=== PATIENT | female | born 1935 | race Caucasian/White ===

== ENCOUNTER 2016-07-11 10:23 | Inpatient (IN) | payer MEDICARE, BC ==
--- NOTE | ~2016-07-11 | DS ---
Discharge Summary [id number] [place]. [address] NAME: CAMILLE TYLER : 37 STATUS : DIS IN PAT#: [id number] AGE: 81 ADM/REG DATE : 07/11/16 MR#: [id number] REPORT SERV DATE: 07/19/16 DICTATED BY: RASHMI CARVAJAL DATE: 07/18/16 REPORT STATUS : Draft TRANSCRIBED BY: MODL DATE: 07/18/16 ADMISSION DATE: 07/11/2016 DISCHARGE DATE: 07/18/2016 REASON FOR ADMISSION: Acute T12 compression fracture status post fall. HISTORY OF PRESENT ILLNESS: Please refer to Dr. Donna Smith's history and physical dated 07/11/2016 for complete details regarding the patient's admission. In brief, the patient was admitted to the Hospitalist Service for evaluation of her acute T12 compression fracture. HOSPITAL COURSE: From admission to 07/17/2016, please refer to Dr. Erin Mccabe's interim summary. In brief, Dr. Mccabe had taken care of the patient for the week. The patient had a kyphoplasty performed for her acute T12 compression fracture with good results. Physical therapy had recommended rehab. The patient was accepted to rehab in choice to [facility], [place], for rehab. In the meantime, urinalysis revealed an E. coli urinary tract infection. The patient was initially treated with IV Rocephin and now been switched over to cefadroxil for therapy to be completed on 07/19/2016. I assumed care of this patient on 07/18/2016, which is the day of discharge. She has been accepted to [facility], [place]. She is stable and we will discharge her to that facility today. DISCHARGE DIAGNOSES: 1. Acute T12 compression fracture, status post kyphoplasty. 2. Generalized debility secondary to a fall and back pain. 3. Escherichia coli urinary tract infection, now resolving. 4. Hypothyroidism. 5. Hypertension. 6. Chronic kidney disease stage 3. 7. Type 2 diabetes. 8. 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 PROCEDURES: Include kyphoplasty. DISCHARGE MEDICATIONS: Include: 1. Tramadol 50 mg every eight hours p.r.n. pain #20 given. 2. Amlodipine 5 mg at bedtime. 3. Wellbutrin 150 mg daily. 4. Caltrate 600+ daily. 5. Cefadroxil 500 mg twice a day to be completed on 07/19/2016. 6. Aricept 23 mg at bedtime. 7. Cymbalta 30 mg twice a day. 8. Iron sulfate 325 mg daily. 9. Insulin glargine 28 units at bedtime. 10.Insulin aspart sliding scale. 11.Levothyroxine 50 mcg daily. 12.Lisinopril 5 mg daily. Discharge Summary [address] [place]. [address] NAME: CAMILLE TYLER : 37 STATUS : DIS IN PAT#: [id number] AGE: 81 ADM/REG DATE : 07/11/16 MR#: [id number] REPORT SERV DATE: 07/19/16 DICTATED BY: RASHMI CARVAJAL DATE: 07/18/16 REPORT STATUS : Draft TRANSCRIBED BY: CLARA DATE: 07/18/16 13.Prilosec 40 mg at bedtime. 14.Seroquel 50 mg at bedtime. 15.Aspirin 81 mg daily. 16.Potassium chloride 20 mEq daily. 17.Voltaren p.r.n. pain. This is Rashmi Carvajal MD, spending over 30 minutes in discharge planing and coordination of care on Ms. Tyler. BROOKE/CLARA Rashmi Carvajal MD / [id number] CC: MD Merary Serna M.D.
--- NOTE | ~2016-07-11 | HP ---
History And Physical [address] [place]. [address] NAME: CAMILLE BRADFORD : 37 STATUS : ADM Dick PAT#: [id number] AGE: 81 ADM/REG DATE : 07/11/16 MR#: [id number] REPORT SERV DATE: 07/11/16 DICTATED BY: DONNA SMITH DATE: 07/11/16 REPORT STATUS : Draft TRANSCRIBED BY: MODL DATE: 07/11/16 DATE OF ADMISSION: 07/11/2016 CHIEF COMPLAINT: Back pain after the fall. HISTORY OF PRESENT ILLNESS: This is an 81-year-old female patient, who has a very sedentary lifestyle, had a fall last Sunday when she was trying to go to the dining room with a walker and she lost balance and she fell back. After that, she is suffering from midback pain. It is getting more progressive, and the patient's family decided to bring the patient to the hospital to get evaluation done. At the emergency room evaluation, she was found to have acute T12 fracture and UTI, and Hospitalist Service was called for inpatient care. She lives at assisted living. She uses a walker for her transportation, but most of the time, she stays in the chair in a very sedentary lifestyle. She was here in the hospital in 2014 with UTI. At that time, she was discharged to rehab. After this, she started to reside in assisted living until today. Her last admission was 2014 in this facility. All the medical information is updated from that history. Denies any fever, but she had some sweats today and weakness. She does have frequent UTIs. She does use a diaper. Most of the time, she does not realize before the urination. Denies any constipation or diarrhea. Denies any shortness of breath or chest pain. No nausea or vomiting. Denies any orthopnea. She sleeps in bed and she denies using multiple levels of pillows. Denies any palpitations. Denies any weight loss. REVIEW OF SYSTEMS: All 14 systems reviewed and negative except mentioned above. PAST MEDICAL HISTORY: 1. Dementia. 2. Coronary artery disease, status post CABG. 3. Hypertension. 4. Obstructive sleep apnea, but not on CPAP. 5. Diabetes mellitus type 2, insulin dependent. 6. Erosive gastropathy and duodenopathy on upper GI. 7. Multiple compression fractures. 8. Diverticulosis. 9. Hemorrhoids. 10.Hiatal hernia. 11.Monoclonal gammopathy. The patient was followed by Dr. Tacos Christianson for a while. History And Physical [address] [address] NAME: CAMILLE BRADFORD : 37 STATUS : ADM Dick PAT#: [id number] AGE: 81 ADM/REG DATE : 07/11/16 MR#: [id number] REPORT SERV DATE: 07/11/16 DICTATED BY: DONNA SMITH DATE: 07/11/16 REPORT STATUS : Draft TRANSCRIBED BY: MODNeli DATE: 07/11/16 Since the disease has been stable, the patient was dismissed from his practice at this point, and primary care physician, Dr. Merary Mcadams, has been following it. 12.Urinary tract infection. PAST SURGICAL HISTORY: 1. Hysterectomy with bilateral salpingo-oophorectomy. 2. Kyphoplasty x3. 3. Cholecystectomy. FAMILY HISTORY: Noncontributory. SOCIAL HISTORY: 1. She smoked her whole life, but quit about 10 years ago. 2. Denies any drug use. 3. Currently, she lives in assisted living. She uses a walker for transportation, but again, she has a very sedentary lifestyle. MEDICATIONS: Aspirin 81 mg once a day, atenolol, lisinopril, Dulcolax, Lantus, levothyroxine, NovoLog, omeprazole, potassium, Aricept, Tramadol p.r.n. ALLERGIES: SHE IS ALLERGIC TO PENICILLIN, LATEX, AND SHELLFISH. PHYSICAL EXAMINATION: VITAL SIGNS: Blood pressure 128/68, pulse was 89, temperature 98.8, respiratory rate 16, saturation is 91% to 92% on room air lying flat. GENERAL APPEARANCE: She is alert, awake, and oriented x1 and not in acute distress. She is lying flat. HEENT: Pupils are equal and round, there is no light. EOM intact. Conjunctivae not anemic. NECK: There is no jugular venous distention. No nodes are palpable. LUNGS: Pretty clear to auscultation. CARDIOVASCULAR: Has no murmur, rub, or gallop. Has a regular rhythm and rate. ABDOMEN: Bowel sounds present. There is no tenderness on the suprapubic area. There is no rebound tenderness. EXTREMITIES: There is no pitting edema. BACK: The patient has focal tenderness around the T12 area. The L3 area is not having that much tenderness. LABORATORY DATA: Showed sodium 136, potassium 4.1, BUN 21, creatinine 1.45, WBC 7.4, hemoglobin 10.1, hematocrit 29.2, platelets 324. STUDIES: X-ray of the C, T, and L-spine showed T12 acute compression fracture, T7 old compression fracture, and a possible L3 acute fracture. Electrocardiogram showed a normal sinus rhythm with right bundle branch. ASSESSMENT AND PLAN: 1. Status post fall. 2. Acute T12 compression fracture with a history of multiple compression fractures with a History And Physical [address] [address] NAME: CAMILLE BRADFORD : 37 STATUS : ADM Dick PAT#: [id number] AGE: 81 ADM/REG DATE : 07/11/16 MR#: [id number] REPORT SERV DATE: 07/11/16 DICTATED BY: DONNA SMITH DATE: 07/11/16 REPORT STATUS : Draft TRANSCRIBED BY: CLARA DATE: 07/11/16 history of kyphoplasty. 3. Dementia. 4. Urinary tract infection. 5. Chronic kidney disease. 6. Diabetes mellitus. The patient's care is already discussed with Dr. Garber, the emergency physician. The patient already had a kyphoplasty in the past for the compression fracture and had a positive outcome. Explained the patient about the kyphoplasty and side effect of kyphoplasty with osteoporosis. Since the patient had a positive outcome with the kyphoplasty, the patient and family agreed that she will try to have kyphoplasty hoping the pain is relieved. They fully understood about the downside of kyphoplasty in light of osteoporosis with multiple compression fractures with a possibility of monoclonal gammopathy effect on the bone. Since the patient has already consulted Dr. Garber and they had a positive outcome, they want to try the kyphoplasty this time. Meanwhile, we will try to control the pain and also we are going to try to control the blood sugar. PT eval will be done after the kyphoplasty and a possible rehabilitation stay was discussed with the patient and family. They all voiced understanding and wished to go to [facility] in case that she needs to go to rehab place. CODE STATUS: DNR. EKL/MODL Donna Smith M.D. / [id number] CC: Yudith Marshall M.D.
--- NOTE | ~2016-07-11 | IDS ---
Interim Discharge Summary [facility] [address] [place]. [address] NAME: CAMILLE BRADFORD : 37 STATUS : ADM IN [facility]#: [id number] AGE: 81 ADM/REG DATE : 07/11/16 MR#: [id number] REPORT SERV DATE: 07/17/16 DICTATED BY: TRACY SLATER DATE: 07/17/16 REPORT STATUS : Draft TRANSCRIBED BY: CLARA DATE: 07/17/16 ADMISSION DATE: 07/11/2016 DISCHARGE DATE: DIAGNOSES: 1. Acute T12 compression fracture, status post fall. 2. Debility, secondary to above. 3. Urinary tract infection. 4. Hypothyroidism. 5. Hypertension. 6. Chronic kidney disease. 7. Type 2 diabetes. CONSULTANTS: Interventional Radiology. PROCEDURES: Kyphoplasty on 07/14/2016. HOSPITAL COURSE: Please see H and P dictated by Dr. Donna Smith. This is an 81-year-old female with a past medical history of dementia, hypertension, and also multiple compression fractures before in the past, status post kyphoplasty in the past presented with back pain, acute after experiencing a fall. Please refer to HPI for further details. The patient was admitted to the Hospitalist Service and kyphoplasty was held for several days in order to first treat her urinary tract infection, which was treated with IV antibiotics with Rocephin and the patient was later sent for kyphoplasty with much improvement of her back pain after the procedure. Patient was having severe debility secondary to the pain, but did have improvement so far according to Physical Therapy's recommendation of inpatient rehab requiring to assist. We will transition off IV Rocephin to Keflex orally. The patient's daughter also has been updated currently at this time awaiting approval for rehab. The patient will be followed by Dr. Carvajal who will attend to this patient's care initiating on 07/18/2016. ANKITA/CLARA Tracy Slater M.D. / [id number]
[~2016-07-11 10:23] MED LIST: ACTOS15 PO; APIDRA SC; ARICEPT23 MG PO; ARICEPT5 PO; ASAB PO; ATEN25 PO; BUDEPRION150 MG PO; CALCIUM + VIT D PO; CALTRA600D PO; CYMBALTA30 PO; CYMBALTA60 PO; FLEXERIL5 MG PO; FOSAMAX70 MG PO; GLUCPH PO; IRON PO; LANTUS SC; LEVOTHROID50 MCG PO; LEVOTHYROXIN50 MCG PO; LORTAB10 PO; MEP50TAB PO; NEXIUM40 PO; NORV10 PO; NORV5 PO; OTC IRON PO; PRAVAC PO; PRIN20 PO; PROTONIX PO; REFRESH TEAR0.5 % OP; SEROQUEL50 MG PO; SPIRIVA INH; STARLIX120 PO; T PO; VENTOLIN HFA INH; VENTOLIN HFA PO; VIT B-SIX 50 MG50 MG PO; VITAMIN B-6 PO; WELLSR150 PO; WELLXL150 PO
[2016-07-11 13:33] LABS: HEMATOCRIT 29.2 % (36.0-48.0); HEMOGLOBIN 10.1 g/dL (12.0-16.0); MEAN CORPUS HGB CONC 34.6 g/dL (32.0-36.0); MEAN CORPUSCULAR HEMOGLOB 34.4 pg (26.0-34.0); MEAN CORPUSCULAR VOLUME 99.3 fL (80-100); MEAN PLATELET VOLUME 10.2 fL (9.2-13.0); PLATELET COUNT 324 10/3/uL (150-400); RBC DISTRIBUTION WIDTH 13.9 % (12.0-16.0); RED CELL COUNT 2.94 10/6/uL (4.0-5.6); WHITE BLOOD CELLS 7.4 10/3/uL (4.5-10.5)
[2016-07-11 13:42] LABS: ASCORBIC ACID (UR NOT ORDER) NEG (NEG); BILIRUBIN, URINE NEGATIVE (NEG); ER URINALYSIS TAT 0 Hrs 14 Mins; KETONE, URINE NEGATIVE (NEG); LEUKOCYTE ESTERASE(NOT OR LARGE (NEG); NITRITE (URINE) POS (NEG); WBC (NOT ORDERED) (RFLEX) > 182 (0-5)
[2016-07-11 13:49] LABS: A/G RATIO 0.5 (0.7-1.9); ALBUMIN 2.9 G/DL (3.5-5.0); ALKALINE PHOSPHATASE 78 U/L (45-117); CHLORIDE, SERUM 100 MMOL/L (96-112); CO2 (CARBON DIOXIDE) 29 MMOL/L (24-34); CREATININE 1.45 MG/DL (0.55-1.02); GFR AFRICAN AMERICAN 39 ML/MIN (>=60); GFR NON AFRICAN AMERICAN 34 ML/MIN (>=60); GLOBULIN 6.2 G/DL (2.5-4.1); SGOT(AST) 5 U/L (5-40); SGPT(ALT) 10 U/L (5-65); SODIUM, SERUM 136 MMOL/L (135-148); TOTAL PROTEIN 9.1 G/DL (6.0-8.5)
[2016-07-11 13:50] LABS: BUN (BLOOD UREA NITROGEN) 21 MG/DL (6-23); GLUCOSE, SERUM 156 MG/DL (60-99); POTASSIUM, SERUM 4.1 MMOL/L (3.5-5.3); TOTAL BILIRUBIN 0.8 MG/DL (0-1.2)
[2016-07-11 14:07] LABS: BAND NEUTROPHILS 9 %; LYMPHOCYTES 15 %; LYMPHOCYTES ABSOLUTE (CALC) 1.11 10/3/uL (0.67-4.30); MONOCYTES 7 %; MONOCYTES ABSOLUTE (CALC) 0.52 10/3/uL (0.21-1.20); NEUTROPHILS ABSOLUTE (CALC) 5.77 10/3/uL (2.02-8.40); PLATELET ESTIMATE ADQ (ADEQUATE); SEGMENTED NEUTROPHIL (0) 69 %; TOTAL NUCLEATED CELLS 100
[2016-07-11 14:08] LABS: RBC MORPHOLOGY NORM (NORMAL)
[2016-07-11] MEDS ORDERED: NORV5 PO (15:40)
[2016-07-11] MEDS ORDERED: ASAB PO (15:40)
[2016-07-11] MEDS ORDERED: CALTRA600D PO (15:41)
[2016-07-11] MEDS ORDERED: ARICEPT23 MG PO (15:41)
[2016-07-11] MEDS ORDERED: WELLSR150 PO (15:41)
[2016-07-11 15:42] LABS: LACTATE 0.5 MMOL/L (0.3-2.4)
[2016-07-11] MEDS ORDERED: LEVOTHYROXIN50 MCG PO (15:42)
[2016-07-11] MEDS ORDERED: FERROUS SULF325 M1 PO (15:42)
[2016-07-11] MEDS ORDERED: LANTUS SC (15:42)
[2016-07-11] MEDS ORDERED: CYMBALTA30 PO (15:42)
[2016-07-11] MEDS ORDERED: PRIN5 PO (15:43)
[2016-07-11] MEDS ORDERED: NOVOLOG SC (15:50)
[2016-07-11] MEDS ORDERED: HIPREX1 GM PO (15:50)
[2016-07-11] MEDS ORDERED: PRILOSEC40 MG PO (15:51)
[2016-07-11] MEDS ORDERED: KLOR-CON M2020 MEQ PO (15:51)
[2016-07-11] MEDS ORDERED: SEROQUEL50 MG PO (15:51)
[2016-07-11] MEDS ORDERED: VOLTAREN1 % TOP (15:52)
[2016-07-12 06:45] LABS: BASOPHILS 0.3 %; BASOPHILS ABSOLUTE 0.02 10/3/uL (0.0-0.16); EOSINOPHILS ABSOLUTE 0.15 10/3/uL (0.0-0.53); HEMOGLOBIN 10.3 g/dL (12.0-16.0); IMMATURE GRANULOCYTES 0.9 %; IMMATURE GRANULOCYTES ABSOLUTE 0.07 10/3/uL (0.0-0.11); LYMPHOCYTES 18.1 %; LYMPHOCYTES ABSOLUTE 1.37 10/3/uL (0.67-4.30); MEAN CORPUS HGB CONC 34.3 g/dL (32.0-36.0); MEAN CORPUSCULAR HEMOGLOB 33.7 pg (26.0-34.0); MEAN PLATELET VOLUME 10.3 fL (9.2-13.0); MONOCYTES 6.3 %; MONOCYTES ABSOLUTE 0.48 10/3/uL (0.21-1.20); NEUTROPHILS 72.4 %; PLATELET COUNT 320 10/3/uL (150-400); RED CELL COUNT 3.06 10/6/uL (4.0-5.6); WHITE BLOOD CELLS 7.6 10/3/uL (4.5-10.5)
[2016-07-12 06:47] LABS: MANUAL DIFF NO %
[2016-07-12 07:02] LABS: BUN (BLOOD UREA NITROGEN) 20 MG/DL (6-23); CHLORIDE, SERUM 103 MMOL/L (96-112); CO2 (CARBON DIOXIDE) 27 MMOL/L (24-34); CREATININE 1.35 MG/DL (0.55-1.02); GFR AFRICAN AMERICAN 43 ML/MIN (>=60); GFR NON AFRICAN AMERICAN 37 ML/MIN (>=60); GLUCOSE, SERUM 162 MG/DL (60-99); POTASSIUM, SERUM 4.2 MMOL/L (3.5-5.3); SODIUM, SERUM 136 MMOL/L (135-148)
[2016-07-12 10:53] LABS: INTERNATIONAL NORMAL RATI 1.3 UNITS (-); PARTIAL THROMBO TIME 32.6 SEC (22.5-37.2); PROTIME (NOT ORD) 15.6 SEC (12.0-14.5)
== END 2016-07-18 16:06 | DRG 516 ==
LOC: ER 10:23 → CDU1 14:25 → ER/OF 16:29 → 5SO 17:08
PROVIDERS: Anesthesiology; Internal Medicine; Nurse Practitioner
PROC: 0PS43ZZ Reposition Thoracic Vertebra, Percutaneous Approach (ICD-10-PCS; principal; 2016-07-14)
PROC: 0PU43JZ Supplement Thoracic Vertebra with Synthetic Substitute, Percutaneous Approach (ICD-10-PCS; 2016-07-14)
DX: S22.089A Unspecified fracture of T11-T12 vertebra, initial encounter for closed fracture (principal); N39.0 Urinary tract infection, site not specified; E11.22 Type 2 diabetes mellitus with diabetic chronic kidney disease; F03.90 Unspecified dementia, unspecified severity, without behavioral disturbance, psychotic disturbance, mood disturbance, and anxiety; N18.9 Chronic kidney disease, unspecified; I25.10 Atherosclerotic heart disease of native coronary artery without angina pectoris; Z95.5 Presence of coronary angioplasty implant and graft; I12.9 Hypertensive chronic kidney disease with stage 1 through stage 4 chronic kidney disease, or unspecified chronic kidney disease; N18.3 Chronic kidney disease, stage 3 (moderate); G47.33 Obstructive sleep apnea (adult) (pediatric); D47.2 Monoclonal gammopathy; W18.30XA Fall on same level, unspecified, initial encounter; Y92.011 Dining room of single-family (private) house as the place of occurrence of the external cause; Z91.013 Allergy to seafood; Z88.0 Allergy status to penicillin; Z91.040 Latex allergy status; Z79.899 Other long term (current) drug therapy; Z79.82 Long term (current) use of aspirin; Z79.4 Long term (current) use of insulin; B96.20 Unspecified Escherichia coli [E. coli] as the cause of diseases classified elsewhere; E03.9 Hypothyroidism, unspecified; G30.0 Alzheimer's disease with early onset; F02.80 Dementia in other diseases classified elsewhere, unspecified severity, without behavioral disturbance, psychotic disturbance, mood disturbance, and anxiety
CPT/HCPCS: 22513; 71010; 72050; 72072; 72100; 72131; 73502-LT; 80048; 80053; 81001; 82962; 83605; 85007; 85025; 85027; 85610; 85730; 87040; 87077; 87086; 87186; 93005; 94640; 96374; 97162-GP; 97530-GP; 99285; A9270-GY; G8978-CL-GP; G8979-CK-GP; J1170; J2370; J2405; J2710; J3010; Q9967